=== PATIENT | female | born 1975 | race Caucasian/White ===

== ENCOUNTER 2024-04-26 08:29 | Inpatient (IN) ==
--- OUTSIDE RECORDS SUMMARY | 2024-04-26 08:50 | External Medical Summary | Summary of Care ---
Author Name Unknown Organization [facility] Address [address] [place] [address] Phone [phone] Care Team Providers Care Pump And Blower Operator Name Role Phone Demarcus Ingram MD Primary Care Provider [phone]- [phone] Reason for Visit * Reason Onset Date Comments Advice 04/20/2024 Gallbladder pain Encounter Details Date Type Department Care Team (Late st Contact Info) Description 04/20/2024 Telephone General Surgery, [place] [address] [place] [address] Mj Sinclair MD [address] [place] [address] Advice (Gallbladder pain) Allergies Active Allergy Reactions Criticality Noted Date Comments Pentosan Polysulfate Sodium 10/04/19 16 Worsened bladder symptoms Pentosan Polysulfate 01/24/2023 Omeprazole Magnesium 12/10/2010 Makes pt very ill Tioconazole Rash 10/21/2008 monistat Fesoterodine Fumarate Er 10/04/2015 Worsened bladder symptoms documented as of this encounter (statuses as of 04/20/2024) Medications Medication Sig Dispensed Refills Start Date End Date Status Cholecalciferol 125 MCG (5000 UT) Oral Capsule Take 1 Capsule by mouth daily. 90 Capsule 09/15/2021 Active Triamcinolone Acetonide 0.1 % External Cream (Aristocort)Indicati ons:Dermatitis Apply topically to affected area 2 times a day . To affected area. 80 g 5 02/21/2022 Active Additional Information Patient taking differently:Topical BID (.AM/PM),To affected area as needed, Reported on 11/27/2023 Cyclobenzaprine HCl 10 MG Oral Tablet (Flexeril)Indication s:Trigger point,Tension headache Take by mouth 1 Tablet 2 times a day as needed for Muscle spasms. 20 Tablet 02/21/2022 Active Additional Information Patient not taking.Reported on 04/09/2024 LORazepam 0.5 MG Oral Tablet (Ativan)Indications: CLEMENCIA (generalized anxiety disorder) Take by mouth 1 Tablet every 8 hours as needed for Anxiety. 30 Tablet 03/04/2022 Active Difluprednate 0.05 % Ophthalmic Emulsion (Durezol) As needed 01/01/2023 Active Dorzolamide HCl-Timolol Mal 2-0.5 % Ophthalmic Solution (Cosopt Ocumeter Plus) As needed 06/26/2023 Active Cyclopentolate HCl 1 % Ophthalmic Solution (Cyclogyl) As needed 06/11/2023 Activ e Rizatriptan Benzoate 10 MG Oral Tablet Disintegrating Take 1 Tablet by mouth as needed for Migraine. May repeat in 2 hours if needed 30 Tablet 3 08/27/2023 Active Nexplanon 68 MG Subcutaneous Implant (Etonogestrel) Inject 1 Each into the skin once. Active Escitalopram Oxalate 10 MG Oral Tablet (Lexapro)Indications :Mood disorder (HCC) TAKE 1 & 1/2 (ONE & ONE-HALF) TABLETS BY MOUTH IN THE MORNING 135 Tablet 1 02/16/2024 Active Fluocinonide 0.05 % External Solution Apply to scalp nightly for itching 20 mL 1 03/18/2024 Active documented as of this encounter (statuses as of 04/20/2024) Active Problems Problem Noted Date Diagnosed Date Mood disorder 02/20/2023 ETD (Eustachian tube dysfunction), bilateral Acanthosis nigricans 08/02/2022 Rosacea 08/02/2022 Ovarian cyst rupture 04/06/2021 Acute blood loss anemia 04/06/2021 Ventral hernia without obstruction or gangrene 0 03/26/2021 H/O dysplastic nevus 05/25/2020 Overview: Mildly atypical nevus (lower abdomen below umbilicus) Endometriosis 12/22/2018 Medical marijuana use 11/30/2018 Iron deficiency anemia 10/19/2018 History of uveitis 05/11/2018 Uveitis of both eyes 02/27/2017 OCD (obsessive compulsive disorder) 03/19/2012 Valdes's esophagus 09/04/2010 Overview: repeat EGD in 6 months documented as of this encounter (statuses as of 04/20/2024) Resolved Problems Problem Noted Date Diagnosed Date Resolved Date Prediabetes 12/04/2020 02/08/2021 Overview: Per Prediabetes protocol Urgency of urination 04/12/2015 018 Dysuria 04/12/2015 11/14/2017 Urinary frequency 04/12/2015 11/14/2017 Abdominal bloating 04/12/2015 8 ADVANCE DIRECTIVE INFORMATION 05/16/2005 11/14/2017 Overview: No, Advance Directive brochure given to patient at prior appointment. OPEN WOUND OF FINGER 01/15/2005 018 Bite of other animal except arthropod(E906.3) 01/16/20 05 11/14/2017 Edema 01/15/2005 11/14/2017 SKIN SENSATION DISTURB 01/15/200511/14 ABN PAP SMEAR-CERVIX 04/26/2003 018 Other acne 04/26/2003 11/14/2017 Major depressive disorder 04/26/2003 Overview: ICD-10 update of inactive term Interstitial cystitis 2017 documented as of this encounter (statuses as of 04/20/2024) Immunizations Name Administration Dates Next Due COVID-19 mRNA, LNP-s, No Pre serve, 2-Dose Series ([employer]) 08/16/2021,01/18/2021,12/28/2020 Rabies Vaccine Unspecified Formulation 3,08/23/2023 TDAP (age 10 and older)(Boostrix) 08/23/2023 TDAP, Age 7 and older, IM (Adacel) 03/18/2011 documented as of this encounter Social History Tobacco Use Types Packs/Day Years Used Date Smoking Tobacco: Never Passive Smoke Exposure: Never Smokeless Tobacco: Never Alcohol Use Standard Drinks/Week Comments Not Currently 0 (1 standard drink = 0.6 oz pur e alcohol) occ PHQ-2 Answer Date Recorded PHQ-2 Score 14 10/11/2019 Hunger Vital Sign Answer Date Recorded Within the past 12 months, y ou worried that your food would run out before you got the money to buy more. Never true 08/26/20 23 Within the past 12 months, t he food you bought just didn't last and you didn't have money to get more. Never true 08/26/2023 Childcare Answer Date Recorded Do you feel overwhelmed with taking care of a child, family member or friend? No 08/26/2023 Does your family need help f inding childcare? (Household - for ages 0-17 years) Not on file 08/26/2023 Clothing Answer Date Recorded Have you been unable to get clothing when it was really needed? No 08/26/2023 Is your family able to get c lothes or diapers when needed? (Household - for ages 0-17 years) Not on file 08/26/2023 Personal Safety Answer Date Recorded Do you feel unsafe or have concerns for your saf ety? No 08/26/2023 Do you have concerns for you r family's safety? (Household - for ages 0-17 years) Not on file 08/26/2023 Utilities Answer Date Recorded Do you have trouble paying y our heating, water, or electric bill? No 08/26/2023 Is your family able to pay t he heat, water, or electric bill? (Household - for ages 0-17 years) Not on file 08/26/2023 Does your family have access to good internet? (Household - for ages 0-17 years) Not on file 08/26/2023 Employment Status Answer Date Recorded Are you unemployed or without regular income? No 08/26/2023 Does the household have a re gular source of income? (Household - for ages 0-17 years) Not on file 08/26/2023 Social Connections Answer Date Recorded How often do you feel lonely or isolated from those around you? Sometimes 08/26/2023 Financial Resource Strain Answer Date R ecorded Do you have any trouble payi ng for your medications, or do you think you might in the future? No 08/26/2023 Does your family have troubl e paying for medicine? (Household - for ages 0-17 years) Not on file 08/26/2023 Transportation Needs Answer Date Record ed READ ONLY Do you have troubl e getting a ride to medical visits or work? Never True 08/26/2023 Does your family have a hard time getting a ride to doctors visits? (Household - for ages 0-17 years) Not on file 08/26/2023 Has lack of transportation k ept you from medical appointments, meetings, work, or from getting things needed for daily living? Check all that apply. (Adult - for ages 18 years and over) Not on file 08/26/2023 Do you (or your family) have trouble finding or paying for a ride (transportation)? (Household - for ages 0-17 years) Not on file 08/26/2023 Housing Stability Answer Date Recorded Do you currently live in a s helter or have no steady place to sleep at night? No 08/26/2023 READ ONLY Do you think you a re at risk of becoming homeless? No 08/26/2023 Does your family worry about paying for your home or becoming homeless? (Household - for ages 0-17 years) Not on file 1 10/26/2022 Are you homeless or worried that you might be in the future? (Adult - for ages 18 years and over) Not on file Are you (or your family) nia eless or worried that you might be in the future? (Household - for ages 0-17 years) Not on file Food Insecurity Answer Date Recorded Do you need food for this week? No 08/26/2023 Are you able to get enough f ood for your family? (Household - for ages 0-17 years) Not on file 08/26/2023 Does your family need food t his week? (Household - for ages 0-17 years) Not on file 08/26/2023 Do you always have enough fo od for your family? (Household - for ages 0-17 years) Not on file 08/26/2023 Sex and Gender Information Value Date Recorded Sex Assigned at Female 11/02/2019 8:41 AM EST Gender Identity Female 11/02/2019 8:41 AM EST Sexual Orientation Straight 10/11/2019 7: 36 AM EST Job Start Date Occupation Industry Not on file Not on file Not on file documented as of this encounter Miscellaneous Notes * Telephone Encounter - Violeta Fish LPN - 04/20/2024 12:23 PM EDT Return phone call to patient regarding complaint of increased RUQ pain related to her gallbladder, patient reported that she was seen at another Ed facility and was recommended to contact her surgeonto have surgery, was offer emergent surgery but patient had decided to wait and contact Dr. Sinclair as she would prefer to have the surgery done laparoscopic V/S open, made patient aware Dr. Yahir walker PTO at this time will message appointment schedulers to see if we could offer patient a sooner appointment, advised patient to control symptoms with diet , take Tylenol 1000 mg every 6 hours alternate with Ibuprofen every [address] she has pain medication to take every 3 hours if ineffective may take the Oxycodone prescribed by the ED facility she was evaluated last evening,, may place heating pad to painful area as well on/ off for 15-20 minutes, patient denies fevers or chills, painis 5/10 stated that while at the ED last evening they had a difficult time controlling her pain, will message insurance administrative assistant to request a sooner appointment if available. documented in this encounter Plan of Treatment Upcoming Encounters Date Type Department Care Team (Late st Contact Info) Description 05/13/2024 9:45 AM EDT Office Visit General Surgery, [address] [address] Mj Sinclair MD [address] [place] [address] 05/27/2024 2:20 PM EDT Telemedicine Gastroenterology, [address] [address] Marlin Mcnamara CRNP [address] [place] [address] 07/30/2024 3:00 PM EDT Office Visit Dermatology [address] [place] [address] David Patel MD [address] [place] [address] 08/31/2024 3:00 PM EST Imaging Radiology [facility] 1st [facility] [place] [address] [place] [address] Scheduled Procedures Name Priority Associated Diagnoses Date/Ti me COLONOSCOPY FLEXIBLE PROXIMAL DIAGNOSTIC Recall Abdominal bloating RLQ abdominal pain COLONOSCOPY FLEXIBLE PROXIMAL DIAGNOSTIC Recall Encounter for screening colonoscopy ESOPHAGOGASTRODUODENOSCOPY ( EGD), FLEXIBLE, TRANSORAL, DIAGNOSTIC Recall Valdes's esophagus Iron deficiency anemia, unspecified iron deficiency anemia type Gastroesophageal Reflux Disease, Unspecified Whether Esophagitis Present Health Maintenance Due Date Last Done Comments Depression Monitoring 10/11/2020 10/11/2019 Cologuard 12/11/2020 Fecal Occult Blood Test 12/11/2020 COVID-19 Vaccine ( season) 2023 08/16/2021, 01/18/2021, 12/28/2020 Influenza Vaccine (FLU shot) (#1) 2024 Mammogram 08/25/2024 08/25/2023, 07/31, 06/28/2022, Additional history exists Sigmoidoscopy 04/10/2025 04/10/2020, 12/07/2019 Valdes's Esophagus Surveilance 08/07/2026 08/07/2023, 08/07/2023, 12/22/2017, Additional history exists Diabetes Screening 10/24/2026 10/24/2023, 0 04/09/2022, 04/09/2022, Additional history exists Lipid Panel 04/09/2027 04/09/2022, 06/29, 08/23/2020, Additional history exists DTaP,Tdap,and Td Vaccines (8 - Td or Tdap) 08/23/2033 08/23/2023, 03/18/2011, 01/19/2001, Additional history exists Colonoscopy 04/09/2034 04/09/2024, 03/29, 12/07/2019, Additional history exists Colorectal Cancer Screening 04/09/2034 Hepatitis B Vaccine Completed 09/13/1993, 04/20/1993, 12/14/1992 HPV (Gardasil) Vaccine Aged Out No lo nger eligible based on patient's age to complete this topic MENINGOCOCCAL (MENACTRA/MENVEO) Aged Out No longer eligible based on patient's age to complete this topic Pneumococcal Vaccine: Pediatrics (0 to 5 Years) and At-Risk Patients (6 to 64 Years) Aged Out No longer eligible based on patient's age to complete this topic documented as of this encounter Medical Devices Not on filedocumented as of this encounter Care Teams Pump And Blower Operator Relationship Specialty Start Date End Date Demarcus Ingram MD [address] [place] [address] PCP - General 12/01/00 documented as of this encounter
--- OUTSIDE RECORDS SUMMARY | 2024-04-26 08:50 | External Medical Summary | Summary of Care ---
Author Name Unknown Organization [facility] Address [address] [place] [address] Phone [phone] Care Team Providers Care Crucible Packer Name Role Phone Demarcus Ingram MD Primary Care Provider [phone]- [phone] Reason for Visit * Reason Onset Date Comments Appointment 04/20/2024 Encounter Details Date Type Department Care Team (Late st Contact Info) Description 04/20/2024 Telephone General Surgery, [place] [address] [place] [address] Mj Sinclair MD [address] [place] [address] Appointment Allergies Active Allergy Reactions Criticality Noted Date [...] mRNA, LNP-s, No Pre serve, 2-Dose Series ([employer]) 08/16/2021,01/18/2021,12/28/2020 Rabies Vaccine Unspecified Formulation 3,08/23/2023 TDAP [...] encounter Miscellaneous Notes * Telephone Encounter - Ana Lewis OSA - 04/20/2024 1:45 PM EDT Called Nelda to get her scheduled with Dr Sinclair for an earlier appointment. She is scheduled 04/30 in [place]. She asked to not cancel the 05/13 appointment just in case she can't make the appointmenton 04/30. She is also on the wait list in case he has a cancellation. documented in this encounter Plan of Treatment Upcoming Encounters Date Type Department Care Team (Late st Contact Info) Description 04/30/2024 9:15 AM EDT Office Visit General Surgery, [address] [phone] Mj Sinclair MD [address] [place] [address] 05/13/2024 9:45 AM EDT Office Visit General Surgery, [place] [address] [place] [address] Mj Sinclair MD [address] [place] [address] 05/27/2024 2:20 PM EDT Telemedicine Gastroenterology, [place] [address], [place] [phone] Marlin Mcnamara CRNP [address] [place] [address] 07/30/2024 3:00 PM EDT Office Visit Dermatology [facility] [address] [facility] [place] [address] David Patel MD [address] [place] [address] 08/31/2024 3:00 PM EST Imaging Radiology [facility] 1st Floor, [address] [place] [address] Scheduled Procedures Name Priority Associated Diagnoses Date/Ti [...] filedocumented as of this encounter Care Teams Crucible Packer Relationship Specialty Start Date End Date Demarcus Ingram MD [address] [place] [address] PCP - General 12/01/00 documented as of this encounter
--- OUTSIDE RECORDS SUMMARY | 2024-04-26 08:50 | External Medical Summary | Summary of Care ---
Author Name Unknown Organization [facility] Address [address] [facility] [address] Phone [phone] Care Team Providers Care Shop Service Technician Name Role Phone Demarcus Ingram MD Primary Care Provider +1- [phone] Encounter Details Date Type Department Care Team (Late st Contact Info) Description 04/23/2024 9:00 AM EDT Telemedicine [facility] [address] [place] [address] Kaylee Prince PA-C [address] [place] [address] Major depressive disorder, recurrent, moderate (HCC)* Allergies Active Allergy Reactions Criticality Noted Date Comments Pentosan Polysulfate Sodium 10/04/19 16 Worsened bladder symptoms Pentosan Polysulfate 01/24/2023 Omeprazole Magnesium 12/10/2010 Makes pt very ill Tioconazole Rash 10/21/2008 monistat Fesoterodine Fumarate Er 10/04/2015 Worsened bladder symptoms documented as of this encounter (statuses as of 04/23/2024) Medications Medication Sig Dispensed Refills Start Date [...] for itching 20 mL 1 03/18/2024 Active Ondansetron 8 MG Oral Tablet Disintegrating (Zofran) Place 1 Tablet on tongue every 8 hours as needed for Nausea. dissolve on tongue. 20 Tablet 1 04/23/2024 Active oxyCODONE HCl 5 MG Oral Tablet (Oxy IR) Take 1 Tablet by mouth every 6 hours as needed for Pain, Severe. 12 Tablet 04/23/2024 Active documented as of this encounter (statuses as of 04/23/2024) Active Problems Problem Noted Date Diagnosed Date Major depressive disorder, recurrent, moderate 0 04/23/2024 Mood disorder 02/20/2023 ETD (Eustachian tube dysfunction), [...] as of this encounter (statuses as of 04/23/2024) Resolved Problems Problem Noted Date Diagnosed Date [...] as of this encounter (statuses as of 04/23/2024) Immunizations Name Administration Dates Next Due COVID-19 mRNA, LNP-s, No Pre serve, 2-Dose Series ([employer]) 08/16/2021,01/18/2021,12/28/2020 Rabies Vaccine Unspecified Formulation 3,08/23/2023 TDAP [...] on file documented as of this encounter Progress Notes * Kaylee Prince PA-C - 04/23/2024 8:50 AM EDT Images from the original note were not included. History of Present Illness Nelda Alcala is a 48 year old female that presents for No chief complaint on file. Due to COVID 19 pandemic, this visit was done via video. Patient is established with the practice. Last face to face visit was 04/06/2024. Call start time: 850 Patient location: HOME. I was in a hospital or clinic location. After connecting through televideo,patient was verified with two unique identifiers. Patient (or authorized legal customer response representative) was then informed that this was a Telemedicine visit and being conducted confidentially over secure lines. Methods to assure confidentiality were taken. Patient acknowledged consent and understanding of pr ivacy and security of the Telemedicine visit. The patient agreed to participate. Has known cholelisthiasis She has had another attack Her firs er atack, the episode was over and she had good pain control She ate carefully Last Friday she had an episode at 7 or 8 am Ramped up fast Pain across front to back,s pasm across herribs Stabbing pain Could not get a deep breathe Her pain was a 12/10 They gave her zofran and fentanyl again This time it did not get the pain under control Was a5-6/10 Spasm stopped but sharp knifing pain did not stop They sent her home owth oxycodone and zofran They wanted her to try to get it under control at home and reach out to her surgeons They gave her nausea medications that helped but only gave her 4 pills - she wants a refill if she can The oxy makes her constipated and nauseas as well as constipated She has not had a bm since Friday She cannot keep much down On Friday she threw up all the meds She tried chicken soup and threw it all up She feels terrible The worst is just the pain The pain is an 8/10 She was given a few tabs of oxy She is spacing it out to try to make it last She is doing IB and tylenol every 6 hours off set She has a lot of gas - wants to know if she can take gas-x She took a colace last night We do not have this er note Her us at the er showed a 1.4 cm stone It had moved from the fundus down to the neck It did not appear to be stuck They felt like it was aggravating the neck Yesterday she called both surgeons offices Told them she cannot do this - it is too much pain Dr Sim is local. She had her consult. He told her that because of her scar tissue and mesh thatshe would have to be an open procedure She talked to him yesterday They can see her May 06 and maybe the surgery the following week. She reached out to the doctor at [facility]. Dr Sinclair. She can see him for a consult on April 30. No idea when she would get a surgery date. Physical Exam There were no vitals filed for this visit. BP Readings from Last 3 Encounters: 04/09/24 115/82 04/06/24 126/82 11/27/23 132/80 Wt Readings from Last 3 Encounters: 04/09/24 110.4 kg (243 lb 4.8 oz) 04/06/24 112.5 kg (248 lb) 11/27/23 113.4 kg (250 lb) BMI Readings from Last 3 Encounters: 04/09/24 35.93 kg/m 04/06/24 36.62 kg/m 11/27/23 36.92 kg/m Ht Readings from Last 3 Encounters: 04/06/24 1.753 m (5' 9") 11/27/23 1.753 m (5' 9") 10/24/23 1.753 m (5' 9") Assessment and Plan Major depressive disorder, recurrent, moderate (HCC) - stable Other orders - Ondansetron 8 MG Oral Tablet Disintegrating (Zofran); Place 1 Tablet on tongue every 8 hours as needed for Nausea. dissolve on tongue. - oxyCODONE HCl 5 MG Oral Tablet (Oxy IR); Take 1 Tablet by mouth every 6 hours as needed for Pain,Severe. I have reviewed the patients controlled substance dispensing history in the Prescription Drug Monitoring Program in compliance with the [facility] regulations before prescribing a controlled substance. Last Tox Screen Results: No results found. However, due to the size of the patient record, not all encounters were searched.Please check Results Review for a complete set of results. Rev her options Do think er is an option for emergency surgery if she cannot control things She is not to eat solids -she has to do a liquid diet. Gas x is fine Wrap-Up Refill meds Need er note Time: I spent a total of 20-29 minutes (exact time 22 mins) on the date of service in preparation, delivery, and documentation of the care provided to Nelda Alcala excluding any time spent in the performance of separately billed services. Kaylee Prince PA-C 04/23/2024 9:10 AM documented in this encounter Plan of Treatment Upcoming Encounters Date Type Department Care Team (Late st Contact Info) Description 04/26/2024 9:40 AM EDT Office Visit [facility] [address] [place] [address] Demarcus Ingram MD [address] [place] [address] 04/30/2024 9:15 AM EDT Office Visit General Surgery[address] [phone] Mj Sinclair MD [address] [place] [address] 05/13/2024 9:45 AM EDT Office Visit [facility] [address] [place] [address] Mj Sinclair MD [address] [place], [place] [phone] 05/27/2024 2:20 PM EDT Telemedicine Gastroenterology, [place] [address] [place] [address] Marlin Mcnamara, [facility] [address] [place] [address] 07/30/2024 3:00 PM EDT Office Visit Dermatology [facility] [address] [place] [address] David Patel MD [address] [place] [address] 08/31/2024 3:00 PM EST Imaging Radiology [address] [place], [place] [id number] Scheduled Procedures Name Priority Associated Diagnoses Date/Ti [...] Not on filedocumented as of this encounter Visit Diagnoses Diagnosis Major depressive disorder, recurrent, moderate (HCC)- Primary Major depressive disorder, recurrent episode, moderate documented in this encounter Care Teams Shop Service Technician Relationship Specialty Start Date End Date Demarcus Ingram MD [address] [place] [address] PCP - General 12/01/00 documented as of this encounter
--- NOTE | 2024-04-26 09:02 | Emergency Department Note ---
Impression & Plan Acute cholecystitis ADMIT ED Provider Note HPI: History obtained from patient. The patient is a 48-year-old female who presents emergency department with chief complaint of abdominal pain. Patient states she has been evaluated multiple times this month in the emergency department for abdominal pain, she was diagnosed with cholelithiasis and was currently in the midst of an outpatient workup to schedule an elective cholecystectomy. Patient states that last night at around 2 AM she again developed a severe episode of right-sided abdominal pain and therefore came to the emergency department this morning to be assessed. Patient states that she does have a history of hernia repair with mesh. On arrival here to the ED the patient is hemodynamically stable, she is mildly tachycardic but otherwise with stable blood pressure and saturating well on room air, patient is afebrile on arrival. ROS: - Per HPI Differential Diagnosis: Acute cholecystitis, choledocholithiasis, acute appendicitis, small bowel obstruction, viral gastroenteritis, amongst other potential pathologies. *Outpatient medications and allergy history reviewed. PE: General: Alert, obese, no acute distress HEENT: Normocephalic, trachea midline Eyes: Extraocular eye movement is intact, no scleral erythema Pulmonary: Clear to auscultation bilaterally, no wheezing Cardio: Regular rate and rhythm GI: There is tenderness in the right upper quadrant to palpation without guarding or rigidity, otherwise abdomen is soft to palpation : No suprapubic tenderness MSK: No evidence of trauma or malformation of the extremities, no edema Skin: No evidence of rash Neuro: Alert, no focal deficits Psychiatric: Cooperative INDEPENDENT INTERPRETATIONS: security monitor: (As interpreted by myself): - An order was placed for continuous cardiac monitoring - Patient was noted to be in sinus rhythm with a rate of 90 Interventions provided in ED: -IV fluid bolus, IV morphine, IV Zofran, IV fentanyl Medical Decision Making: IV was established and lab work obtained, patient was placed on residential monitor. Lab work shows no leukocytosis, hemoglobin is normal, platelet count is slightly elevated at 424, CMP does not show any critical findings, there is no transaminitis. Bilirubin is normal. Lipase is normal. Urinalysis shows 2+ ketones. Patient was given IV fluids here in the ED, ultrasound imaging of the gallbladder was obtained that is concerning for acute cholecystitis with an impacted stone in the neck of the gallbladder. I discussed these findings with the general surgery midlevel provider, Jazmin Cardoza PA-C, and the patient was evaluated at the bedside by the general surgery service including Dr. Sim. Following their evaluation the patient was determined appropriate for operative intervention. Patient was in agreement to this plan. She was placed for admission to the general surgery service with plan for definitive care via cholecystectomy. Consultants/Discussions held with other healthcare providers: -General surgery, Dr. Sim Disposition discussion held by myself with: -Patient and patient's mother at the bedside Diagnosis: 1. Acute cholecystitis 2. Ketonuria, acute 3. Right-sided abdominal pain, acute Disposition: Admission Nato Tavarez DO Emergency Medicine Past Med/Surg History Problem List (Updated 04/26/24 @ 12:55 by Nato Tavarez DO) Acute cholecystitis (Acute) Encounter for pre-operative examination Acute cholecystitis Abdominal pain (Acute) Back problem Cholelithiasis (Acute) Nexplanon in place 06/2023 Depression with anxiety Chronic pelvic pain in female Diarrhea Constipation Medical History (Updated 04/26/24 @ 12:55 by Nato Tavarez DO) Endometriosis Robert's thyroiditis Stomach ulcer Anemia H/O sigmoidoscopy to open her bowel after scarring. Migraine Surgical History H/O hernia repair at site of ileostomy H/O: hysterectomy for eosis H/O ileostomy with reversal Hx of appendectomy at time of hyster S/P colon resection 2 sections removed during her hx for eosis History of wisdom tooth extraction H/O colonoscopy Family History Father Hypertension Heart disease Mother Breast cancer, Onset Age: 72 Robert's thyroiditis Grandfather (Maternal) Prostate cancer Cancer Colorectal cancer Grandmother (Paternal) Lung cancer Cancer Uncle Lymphoma maternal Denies family history of Ovarian cancer Social History Smoking Status: Never smoker Hx Alcohol Use: Yes Alcohol Intake Frequency: Monthly or Less Preferred Language: Icelandic marital status: Feels Safe at Home: Yes Diet: regular during the past year weight has: remained stable Allergies Allergies Allergy/AdvReac Type Severity Reaction Status Date / Time fesoterodine [From Toviaz] Allergy Mild BLADDER Unverified 04/26/24 11:05 PAIN omeprazole Allergy Mild Gastrointestinal Unverified 04/26/24 11:05 Upset tioconazole Allergy Mild PAIN Unverified 04/26/24 11:05 [From Monistat 1 (tioconazole)] Monistat Soothing Care GEL AdvReac Unknown Pain Uncoded 04/26/24 11:05 Home Meds Home Medications Medication Instructions Recorded Confirmed etonogestrel 68 mg subdermal 1 implant subdermal ONCE 01/02/23 04/26/24 implant (Nexplanon) Endometriosis escitalopram oxalate 10 mg tablet 15 mg PO QAM 04/04/24 04/26/24 rizatriptan 10 mg disintegrating 10 mg PO ONCE PRN Migraine Headache 04/04/24 04/26/24 tablet lorazepam 0.5 mg tablet 0.5 mg PO DAILY PRN Anxiety 04/26/24 04/26/24 ondansetron 8 mg disintegrating 8 mg PO Q8H PRN Nausea And Vomiting 04/26/24 04/26/24 tablet Previous Rx's Medication Instructions Recorded oxycodone 5 mg tablet 5 mg PO Q8H PRN pain #10 tabs 04/20/24 Results & Data (ED) Vital Signs Vital Signs - 24 hr 04/26/24 08:36 04/26/24 09:02 04/26/24 11:14 Temperature 36.2 C L Temperature Source Temporal Artery Scan Pulse Rate 116 H 98 H Pulse Rate [Left Finger] 97 H Pulse Rate from SpO2 Sensor Pulse Rhythm [Left Finger] Regular Pulse Strength [Left Finger] Normal Respiratory Rate 20 18 Respiratory Effort / Characteristics Non-Labored Non-Labored Spontaneous Respiratory Depth Normal Normal Respiratory Pattern Regular Blood Pressure 136/72 Blood Pressure [Right Arm] 144/87 H Blood Pressure Mean 93 Blood Pressure Mean [Right Arm] 106 Blood Pressure Position [Right Arm] Sitting Pulse Oximetry 98 97 Oxygen Delivery Method Room Air Room Air Sepsis New/Unexplained Change in Mental Status No Sepsis Action Taken by Nursing No Action Required 04/26/24 11:15 04/26/24 11:30 04/26/24 12:00 Temperature Temperature Source Pulse Rate 105 H 90 92 H Pulse Rate [Left Finger] Pulse Rate from SpO2 Sensor 100 H 92 H 92 H Pulse Rhythm [Left Finger] Pulse Strength [Left Finger] Respiratory Rate 16 19 17 Respiratory Effort / Characteristics Respiratory Depth Respiratory Pattern Blood Pressure 144/87 H 131/77 152/93 H Blood Pressure [Right Arm] Blood Pressure Mean 106 95 112 Blood Pressure Mean [Right Arm] Blood Pressure Position [Right Arm] Pulse Oximetry 95 97 96 Oxygen Delivery Method Sepsis New/Unexplained Change in Mental Status Sepsis Action Taken by Nursing 04/26/24 12:43 Temperature 36.7 C Temperature Source Oral Pulse Rate Pulse Rate [Left Finger] 94 H Pulse Rate from SpO2 Sensor Pulse Rhythm [Left Finger] Regular Pulse Strength [Left Finger] Normal Respiratory Rate 20 Respiratory Effort / Characteristics Non-Labored Spontaneous Respiratory Depth Normal Respiratory Pattern Regular Blood Pressure Blood Pressure [Right Arm] 161/93 H Blood Pressure Mean Blood Pressure Mean [Right Arm] 115 Blood Pressure Position [Right Arm] Sitting Pulse Oximetry 98 Oxygen Delivery Method Room Air Sepsis New/Unexplained Change in Mental Status Sepsis Action Taken by Nursing Laboratory Data 04/26/24 09:00 04/26/24 09:00 Lab Results 04/26/24 04/26/24 Range/Units 09:00 09:10 WBC 8.17 (4.8-10.8) K/ul RBC 4.60 (4.20-5.40) M/uL Hgb 13.0 (12.0-16.0) g/dl Hct 38.2 (37.0-47.0) % MCV 83.0 (80.0-100.0) fL MCH 28.3 (25.0-34.0) pg MCHC 34.0 (32.0-36.0) g/dL RDW Std Deviation 38.4 (36.4-46.3) fL RDW Coeff of Robert 12.7 (11.5-14.5) % Plt Count 424 H (130-400) K/uL MPV 8.8 L (9.4-12.4) fL Immature Gran % (Auto) 0.6 % Neut % (Auto) 69.4 % Lymph % (Auto) 18.8 % Dare % (Auto) 9.1 % Eos % (Auto) 1.7 % Baso % (Auto) 0.4 % Neut # (Auto) 5.67 (1.40-6.50) K/uL Lymph # (Auto) 1.54 (1.20-3.40) K/uL Dare # (Auto) 0.74 H (0.11-0.59) K/uL Eos # (Auto) 0.14 (0.00-0.50) K/uL Baso # (Auto) 0.03 (0.00-0.20) K/uL Immature Gran # (Auto) 0.05 (0.01-0.20) K/uL PT 11.4 (9.0-12.0) Seconds INR 1.1 (0.9-1.1) Sodium 135 L (136-145) mmol/L Potassium 3.4 L (3.5-5.1) mmol/L Chloride 99 (98-107) mmol/L Carbon Dioxide 25 (21-32) mmol/L Anion Gap 11 (3-11) BUN 4 L (6-23) mg/dl Creatinine 0.61 (0.6-1.2) mg/dl Est Cr Clr Drug Dosing 146.4 ml/min Est GFR ( Amer) 124.2 ml/min Est GFR (Non-Af Amer) 107.2 ml/min BUN/Creatinine Ratio 6.6 L (10-20) Glucose 92 (70-99(Fasting)) mg/dl Calcium 9.3 (8.6-10.3) mg/dl Total Bilirubin 0.4 (0.2-1.0) mg/dl AST 21 (13-39) U/L ALT 50 (7-52) U/L Alkaline Phosphatase 103 (34-104) U/L Total Protein 7.8 (6.0-8.3) gm/dl Albumin 4.1 (3.4-5.0) gm/dl Globulin 3.7 (2.5-4.0) gm/dl Albumin/Globulin Ratio 1.1 (0.9-2) Lipase 17 (11-82) U/L Urine Color Yellow Urine Appearance Clear (Clear) Urine pH 6.5 (4.5-7.5) Ur Specific [place] 1.006 (1.000-1.030) Urine Protein Negative (Negative) Urine Glucose (UA) Negative (Negative) Urine Ketones 2+ H (Negative) Urine Blood Negative (Negative) Urine Nitrite Negative (Negative) Urine Bilirubin Negative (Negative) Urine Urobilinogen Negative (Negative) Ur Leukocyte Esterase Negative (Negative) Administered Medications Discontinued Medications Fentanyl Citrate (Fentanyl Citrate Pf 100 Mcg/2 Ml Vial) 50 mcg IV NOW STA Stop: 04/26/24 10:15 Last Admin: 04/26/24 10:18 Dose: 50 mcg Documented By: JOSE Sodium Chloride (Nss) 500 mls @ 999 mls/hr IV .Q31M STA Stop: 04/26/24 09:30 Last Infusion: 04/26/24 10:03 Dose: Infused Documented By: Admin: 04/26/24 09:12 Dose: 999 mls/hr Documented By: JOSE Morphine Sulfate (Morphine Sulfate 4 Mg/Ml 1 Ml Carp\Vial) 4 mg IV NOW STA Stop: 04/26/24 09:01 Last Admin: 04/26/24 09:12 Dose: 4 mg Documented By: JOSE Morphine Sulfate (Morphine Sulfate 4 Mg/Ml 1 Ml Carp\Vial) 4 mg IV NOW STA Stop: 04/26/24 10:07 Last Admin: 04/26/24 10:18 Dose: Not Given Documented By: JOSE Ondansetron HCl (Ondansetron Inj 2 Mg/Ml 2 Ml Vial) 4 mg IV NOW STA Stop: 04/26/24 09:01 Last Admin: 04/26/24 09:12 Dose: 4 mg Documented By: JOSE Imaging Data Radiologist's Impression: Gallbladder Ultrasound 04/26/24 09:00 ABDOMINAL ULTRASOUND, RIGHT UPPER QUADRANT HISTORY: RUQ pain. COMPARISON: Abdominal ultrasound 04/20/2024. FINDINGS: Pancreas: The visualized pancreas demonstrates a normal echotexture. Liver: The liver is echogenic consistent with fatty change. 16 cm in length. The main portal vein is patent. Gallbladder: Mild gallbladder wall thickening with trace pericholecystic fluid. There are 2 stones within the gallbladder. The stone within the gallbladder neck measures 1.5 cm and appears impacted. A sonographic Brewster's sign was unable to be assessed due to the patient's pain medication. The gallbladder is mildly distended. CBD: 6 mm. Right kidney: No hydronephrosis. IMPRESSION: 1. There is a 1.5 cm stone within the neck of the gallbladder which appears impacted. There is also mild gallbladder wall thickening with trace pericholecystic fluid. Therefore, these findings are suspicious for an acute cholecystitis. Surgical consultation recommended. 2. Normal caliber common bile duct. 3. Hepatic steatosis. ACT 112: Negative or not required by law. Electronically signed by: Clayton Banks M.D. 04/26/2024 10:26 AM Discharge Plan Visit Data Chief Complaint: Abdominal Pain Stated Complaint: GALLBLADDER ATTACK ED Provider: Nato Tavarez Discharge Problem: Acute cholecystitis Patient Disposition: Admitted As Inpatient Discharge Instructions Interventions: ED Discharge Assessment Last Done: 04/26/24 12:25
[2024-04-26] MEDS: ONDANSETRON INJ 2 MG/ML 2 ML VIAL IV STA (09:12)
[2024-04-26] MEDS: MoRPHine SULFATE 4 MG/ML 1 ML CARP\\VIAL IV STA ×2 (09:12→10:18)
[2024-04-26] MEDS: SODIUM CHLORIDE 0.9% 500 ML IV STA (09:12)
[2024-04-26 09:35] LABS: Appearance Urine Clear (Clear); Bilirubin Urine Negative (Negative); Blood Urine Negative (Negative); Color Urine Yellow; Glucose Urine UA Negative (Negative); Ketones Urine 2+ (Negative); Leukocyte Esterase Urine Negative (Negative); Nitrite Urine Negative (Negative); Protein Urine Negative (Negative); Specific Gravity Urine 1.006 (1.000-1.030); Urobilinogen Urine Negative (Negative); pH Urine 6.5 (4.5-7.5)
[2024-04-26 09:36] LABS: Basophils # (auto) 0.03 K/uL (0.00-0.20); Basophils % (auto) 0.4 %; Eosinophils # (auto) 0.14 K/uL (0.00-0.50); Eosinophils % (auto) 1.7 %; Hematocrit (blood only) 38.2 % (37.0-47.0); Immature Granulocytes # (auto) 0.05 K/uL (0.01-0.20); Immature Granulocytes % (auto) 0.6 %; Lymphocytes # (auto) 1.54 K/uL (1.20-3.40); Lymphocytes % (auto) 18.8 %; Mean Corpuscular Hemoglobin 28.3 pg (25.0-34.0); Mean Platelet Volume 8.8 fL (9.4-12.4); Monocytes # (auto) 0.74 K/uL (0.11-0.59); Monocytes % (auto) 9.1 %; Neutrophils # (auto) 5.67 K/uL (1.40-6.50); Neutrophils % (auto) 69.4 %; Platelet Count 424 K/uL (130-400); RDW Coefficient of Variation 12.7 % (11.5-14.5); RDW Standard Deviation 38.4 fL (36.4-46.3); White Blood Count 8.17 K/ul (4.8-10.8)
[2024-04-26 09:46] LABS: Albumin Globulin Ratio 1.1 (0.9-2); Albumin Level 4.1 gm/dl (3.4-5.0); BUN Creatinine Ratio 6.6 (10-20); Bilirubin,Total 0.4 mg/dl (0.2-1.0); Calcium 9.3 mg/dl (8.6-10.3); Creatinine Clr Calc Pharmacy 146.4 ml/min; Est GFR (African American) 124.2 ml/min; Est GFR (Non-African American) 107.2 ml/min; Globulin 3.7 gm/dl (2.5-4.0); Potassium 3.4 mmol/L (3.5-5.1); Total Protein 7.8 gm/dl (6.0-8.3)
[2024-04-26 09:56] LABS: INR 1.1 (0.9-1.1); Prothrombin Time 11.4 Seconds (9.0-12.0)
[2024-04-26] MEDS: fentaNYL citrate PF 100 MCG/2 ML VIAL IV STA (10:18)
--- NOTE | 2024-04-26 10:28 | Ultrasound Report ---
ABDOMINAL ULTRASOUND, RIGHT UPPER QUADRANT HISTORY: RUQ pain. COMPARISON: Abdominal ultrasound 04/20/2024. FINDINGS: Pancreas: The visualized pancreas demonstrates a normal echotexture. Liver: The liver is echogenic consistent with fatty change. 16 cm in length. The main portal vein is patent. Gallbladder: Mild gallbladder wall thickening with trace pericholecystic fluid. There are 2 stones wi thin the gallbladder. The stone within the gallbladder neck measures 1.5 cm and appears impacted. A s onographic Brewster's sign was unable to be assessed due to the patient's pain medication. The gallblad krishna is mildly distended. CBD: 6 mm. Right kidney: No hydronephrosis. IMPRESSION: 1. There is a 1.5 cm stone within the neck of the gallbladder which appears impacted. There is also m ild gallbladder wall thickening with trace pericholecystic fluid. Therefore, these findings are suspi cious for an acute cholecystitis. Surgical consultation recommended. 2. Normal caliber common bile duct. 3. Hepatic steatosis. ACT 112: Negative or not required by law. Electronically signed by: Clayton Banks M.D. 04/26/2024 10:26 AM
--- NOTE | 2024-04-26 10:57 | History & Physical Report ---
Date of Service April 26, 2024 Assessment & Plan (1) Acute cholecystitis: Plan: US images and results were personally viewed and interpreted by myself She likely has acute cholecystitis based on her US and physical exam findings Will admit her, keep NPO, give IV ABX Plan on laparoscopic cholecystectomy, possible open, possible IOC Consent was obtained, risks discussed including bleeding, infection, bile leak, ductal injury, injury to surrounding structures History of Present Illness Chief Complaint: Acute cholecystitis Primary Care Provider: Demarcus Ingram MD This is a 48 yo female who presented to the ER today with sharp RUQ abdominal pain with radiation to the back since 2AM. She states that for the past week or so she has had similar symptoms but they worsened at 2AM. No aggravating or relieving factors. She has had nausea and emesis with this. Denies any tea- colored urine, acholic stools, scleral icterus. She does have a fairly extensive surgical history that involves a robotic LAR and ileocecectomy and hysterectomy for endometriosis. She had diverting ileostomy that has since been reversed. She then had an incisional hernia repair with mesh. This was all done at [facility]. Allergies Allergy/AdvReac Type Severity Reaction Status Date / Time fesoterodine [From Toviaz] Allergy Mild BLADDER Unverified 04/07/24 10:39 PAIN omeprazole Allergy Mild Gastrointestinal Unverified 04/07/24 10:39 Upset tioconazole Allergy Mild PAIN Unverified 04/07/24 10:39 [From Monistat 1 (tioconazole)] Monistat Soothing Care GEL AdvReac Unknown Uncoded 04/07/24 10:39 Home Medications Medication Instructions Recorded Confirmed Type etonogestrel 68 mg subdermal 1 implant subdermal ONCE 01/02/23 04/07/24 History implant (Nexplanon) escitalopram oxalate 10 mg tablet 15 mg PO QAM 04/04/24 04/07/24 History rizatriptan 10 mg disintegrating 10 mg PO ONCE PRN Migraine Headache 04/04/24 04/07/24 History tablet oxycodone 5 mg tablet 5 mg PO Q8H PRN pain #10 tabs 04/20/24 Rx Past Med/Surg History Problem List (Updated 04/26/24 @ 11:01 by Morteza Sim DO) Acute cholecystitis Abdominal pain (Acute) Back problem Cholelithiasis (Acute) Nexplanon in place 06/2023 Depression with anxiety Chronic pelvic pain in female Endometriosis Robert's thyroiditis Diarrhea Constipation Medical History Stomach ulcer Anemia H/O sigmoidoscopy to open her bowel after scarring. Migraine Surgical History H/O hernia repair at site of ileostomy H/O: hysterectomy for eosis H/O ileostomy with reversal Hx of appendectomy at time of hyster S/P colon resection 2 sections removed during her hx for eosis History of wisdom tooth extraction H/O colonoscopy Family History Father Hypertension Heart disease Mother Breast cancer, Onset Age: 72 Robert's thyroiditis Grandfather (Maternal) Prostate cancer Cancer Colorectal cancer Grandmother (Paternal) Lung cancer Cancer Uncle Lymphoma maternal Denies family history of Ovarian cancer Social History Smoking Status: Never smoker Hx Alcohol Use: Yes Alcohol Intake Frequency: Monthly or Less Preferred Language: Maori marital status: Feels Safe at Home: Yes Diet: regular during the past year weight has: remained stable Review of Systems Constitutional: no fever and no chills Eyes: no blind spots and no worsening vision Ear, Nose, Mouth, Throat: no ear pain, no tinnitus and no hearing loss Respiratory: no cough and no dyspnea Cardiovascular: no chest pain and no dyspnea on exertion Gastrointestinal: + abdominal pain, + nausea and + vomitin g; no constipation and no diarrhea/loose stools Genitourinary: no dysuria, no urinary urgency and no nocturia Musculoskeletal: no back pain and no neck pain Integumentary: no acne, no erythema and no urticaria Neurologic: no gait abnormality and no headache(s) Psychiatric: no behavioral changes and no depression Hematologic / Lymphatic: no easy bleeding and no easy bruising Physical Exam Constitutional: WD/WN, vitals as above Eyes: PERRL, conjunctivae normal, anicteric sclerae ENMT: external ear and nose normal, oropharynx normal Neck: trachea midline, no thyromegaly Respiratory: normal respiratory effort, lungs clear to auscultation Cardiovascular: RRR, no murmur, no edema Gastrointestinal (Abdomen): Inspection/Auscultation: abdomen normal to inspection; abdomen not distended Percussion/Palpation: + abdomen tender (RUQ), + guarding and abdomen soft; no hernia Multiple surgical scars, RLQ, lower midline Musculoskeletal: no cyanosis or clubbing, extremities motor strength 5/5 Skin: no rashes, warm and dry Neurologic: PERRL, EOMI, accommodation nl, no face palsy, no dysarthria Psychiatric: A+Ox3, euthymic affect Results & Data Results & Data Vital Signs (Past 12 Hours) Vital Signs Temp Pulse Resp BP Pulse Ox O2 Del Method 04/26/24 09:02 98 H 04/26/24 08:36 36.2 C L 116 H 20 136/72 98 Room Air PG Care Time/CCT Total # of Minutes Spent Total Time Spent with Patient: Total time spent is greater than 50% in coordination of care (as documented) at patient's floor/unit and/or counseling patient: Coding Level of Care Code 60008 INT INP/OBS CARE 3/75MIN Diagnoses Acute cholecystitis K81.0
[2024-04-26] MEDS ORDERED: ONDANSETRON INJ 2 MG/ML 2 ML VIAL IV PRN ×3 (11:22→18:24)
[2024-04-26] MEDS ORDERED: KETOROLAC 30 MG/ML VIAL IV PRN ×2 (11:22→13:32)
[2024-04-26] MEDS ORDERED: PROMETHAZINE HCL 6.25 MG in SODIUM CHLORIDE 0.9% 50 ML IV PRN ×2 (11:22→13:32)
[2024-04-26] MEDS ORDERED: ATROPINE SULFATE 0.1 MG/ML 10ML SYR IV PRN ×2 (11:22→13:32)
--- NOTE | 2024-04-26 11:22 | Anesthesiology Consultation ---
Date of Service April 26, 2024 Assessment & Plan (1) Encounter for pre-operative examination: Chart Review Chart Review: Acceptable Risk for Surgery History Surgery Operation Date: 04/26/24 10:20 Proposed Procedures p Laparoscopic Cholecystectomy - Morteza Sim, Height/Weight Height: 5 ft 9 in Weight: 106.3 kg Allergies Allergy/AdvReac Type Severity Reaction Status Date / Time fesoterodine [From Toviaz] Allergy Mild BLADDER Unverified 04/26/24 11:05 PAIN omeprazole Allergy Mild Gastrointestinal Unverified 04/26/24 11:05 Upset tioconazole Allergy Mild PAIN Unverified 04/26/24 11:05 [From Monistat 1 (tioconazole)] Monistat Soothing Care GEL AdvReac Unknown Pain Uncoded 04/26/24 11:05 Medications Home Medications Medication Instructions Recorded Confirmed Last Taken etonogestrel 68 mg subdermal 1 implant subdermal ONCE 01/02/23 04/26/24 Unknown implant (Nexplanon) Endometriosis escitalopram oxalate 10 mg tablet 15 mg PO QAM 04/04/24 04/26/24 04/26/24 rizatriptan 10 mg disintegrating 10 mg PO ONCE PRN Migraine Headache 04/04/24 04/26/24 Unknown tablet oxycodone 5 mg tablet 5 mg PO Q8H PRN pain #10 tabs 04/20/24 04/26/24 04/25/24 lorazepam 0.5 mg tablet 0.5 mg PO DAILY PRN Anxiety 04/26/24 04/26/24 Unknown ondansetron 8 mg disintegrating 8 mg PO Q8H PRN Nausea And Vomiting 04/26/24 04/26/24 Unknown tablet Past Medical History Medical History (Updated 04/26/24 @ 11:22 by Dm Rodriguez MD) Endometriosis Robert's thyroiditis Stomach ulcer Anemia H/O sigmoidoscopy to open her bowel after scarring. Migraine Past Family History Family History Father Hypertension Heart disease Mother Breast cancer, Onset Age: 72 Robert's thyroiditis Grandfather (Maternal) Prostate cancer Cancer Colorectal cancer Grandmother (Paternal) Lung cancer Cancer Uncle Lymphoma maternal Denies family history of Ovarian cancer Past Surgical History Surgical History H/O hernia repair at site of ileostomy H/O: hysterectomy for eosis H/O ileostomy with reversal Hx of appendectomy at time of hyster S/P colon resection 2 sections removed during her hx for eosis History of wisdom tooth extraction H/O colonoscopy Social History Smoking Status: Never smoker Hx Alcohol Use: Yes Physical Exam Vital Signs Last Vital Signs Temp 36.2 C L 04/26/24 08:36 Pulse 97 H 04/26/24 11:14 Resp 18 04/26/24 11:14 BP 144/87 H 04/26/24 11:14 Pulse Ox 97 04/26/24 11:14 O2 Del Method Room Air 04/26/24 11:14 Testing Laboratory Results 04/26/24 09:00 04/26/24 09:00 PT 11.4 Seconds (9.0-12.0) 04/26/24 09:00 INR 1.1 (0.9-1.1) 04/26/24 09:00 Urine Color Yellow 04/26/24 09:10 Urine Appearance Clear (Clear) 04/26/24 09:10 Urine pH 6.5 (4.5-7.5) 04/26/24 09:10 Ur Specific [place] 1.006 (1.000-1.030) 04/26/24 09:10 Urine Protein Negative (Negative) 04/26/24 09:10 Urine Glucose (UA) Negative (Negative) 04/26/24 09:10 Urine Ketones 2+ (Negative) H 04/26/24 09:10 Urine Nitrite Negative (Negative) 04/26/24 09:10 Ur Leukocyte Esterase Negative (Negative) 04/26/24 09:10
[2024-04-26] MEDS: LACTATED RINGER'S 1,000 ML IV SCH ×2 (12:52→20:33)
[2024-04-26] MEDS ORDERED: fentaNYL citrate PF 100 MCG/2 ML VIAL IV PRN (13:32)
[2024-04-26] MEDS ORDERED: DROPERIDOL 5 MG/2 ML VIAL ONE (13:33)
[2024-04-26] MEDS ORDERED: ONDANSETRON INJ 2 MG/ML 2 ML VIAL ONE (13:38)
[2024-04-26] MEDS ORDERED: DEXAMETHASONE SOD INJ 4 MG/ML VIAL ONE (13:38)
[2024-04-26] MEDS ORDERED: LIDOCAINE 2% 2 ML VIAL/AMP(20MG/ML) INFIL ONE (13:38)
[2024-04-26] MEDS ORDERED: ROCURONIUM BROMIDE 10 MG/ML 5 ML VIAL IV ONE ×2 (13:38→14:55)
[2024-04-26] MEDS ORDERED: PROPOFOL IV EMULSION 10 MG/ML 20 ML VIAL IV ONE ×2 (13:38→15:21)
[2024-04-26] MEDS ORDERED: MIDAZOLAM HCL 1 MG/ML 2ML VIAL ONE (13:39)
[2024-04-26] MEDS ORDERED: fentaNYL citrate PF 100 MCG/2 ML VIAL ONE ×2 (13:39→14:46)
[2024-04-26] MEDS ORDERED: diphenhydrAMINE 50 MG/ML VIAL ONE (13:43)
[2024-04-26] MEDS: cefOXitin 2,000 MG in DEXTROSE 5 % MINI-B 50 ML IV SCH (14:22)
[2024-04-26] MEDS ORDERED: ePHEDrine sulfate 50 MG/5 ML SYR ONE (14:41)
[2024-04-26] MEDS ORDERED: PHENYLEPHRINE 100MCG/ML 10ML SYR IV ONE (14:41)
[2024-04-26] MEDS ORDERED: KETOROLAC 30 MG/ML VIAL ONE (14:48)
[2024-04-26] MEDS ORDERED: SUGAMMADEX SODIUM 200 MG/2 ML VIAL IV ONE (15:07)
[2024-04-26] MEDS: FLOSEAL HEMOSTATIC MATRIX 10ML TOP ONE (15:45)
[2024-04-26] MEDS ORDERED: NEOSTIGMINE METHYLSULFATE 1 MG/ML 10ML VIAL ONE (15:57)
[2024-04-26] MEDS ORDERED: GLYCOPYRROLATE 0.2 MG/ML VIAL ONE ×2 (15:57)
[2024-04-26] MEDS: BUPIVACAINE/EPINEPHRINE 0.25% 1:200,000 30 ML VIAL ONE (16:15)
--- NOTE | 2024-04-26 16:25 | Post Operative Brief Note ---
PG Immediate Post Op with CF Date of Surgery April 26, 2024 Pre & Post Diagnosis Operation Date: 04/26/24 10:20 Pre-Op Diagnosis: Acute Cholecystitis Post-Op Diagnosis: Acute Cholecystitis I identified the patient and participated in the time-out.: Yes Procedure Operation Date: 04/26/24 10:20 Actual Procedures p Laparoscopic Cholecystectomy(Not Applicable) - Morteza Sim DO Surgeon Morteza Sim DO Icu Registered Nurse Jazmin Cardoza PA-C Estimated Blood Loss 100 Findings See Below Acutely inflamed thickened gallbladder with dense omental adhesions Specimens Specimen Description: A. Gallbladder Anesthesia Type General Complications none Disposition Disposition: Recovery Room
--- NOTE | 2024-04-26 16:31 | Operative Report ---
PG Post Operative Report Pre & Post Diagnosis Operation Date: 04/26/24 10:20 Pre-Op Diagnosis: Acute Cholecystitis Post-Op Diagnosis: Acute Cholecystitis I identified the patient and participated in the time-out.: Yes Procedure Operation Date: 04/26/24 10:20 Actual Procedures p Laparoscopic Cholecystectomy(Not Applicable) - Morteza Sim DO Surgeon Morteza Sim DO Helper Driver Jazmin Cardoza PA-C Estimated Blood Loss 100 Findings See Below Acutely inflamed thickened gallbladder with dense omental adhesions Fluids see anesthesia record Specimens Gallbladder to pathology Drains None Anesthesia Type General Complications none Disposition Disposition: Recovery Room Indications 48 yo female with acute cholecystitis Description of Procedure The patient was brought to the operating room and placed in the supine position with both arms extended. At this time she underwent general endotracheal anesthesia without any problems. She was given appropriate pre-operative antibiotics. Her abdomen prepped and draped in the usual sterile fashion. A timeout was called, the procedure was verified as Laparoscopic cholecystectomy, possible open, possible intra-operative cholangiogram. Surgical, nursing and anesthesia teams agreed and the procedure was begun. After injection of 0.25% Marcaine with epinephrine, a supraumbilical vertical incision was made and carried down to the fascia using S-retractors. The abdominal wall was then elevated with towel clamps and abdomen entered using the Veress needle confirming position using the saline drop test. Pneumoperitoneum was established. 5mm trocar was placed. Laparoscope was introduced. No injury fro m entry into the abdomen was visualized after inspection of the abdomen. Three further ports were placed under direct visualization. One 11mm in the subxiphoid region and two 5mm in the RUQ. At this time the abdomen was inspected and the gallbladder identified. The gallbladder was needle decompressed in order to better manipulate it. There were dense omental adhesions and sharp dissection. Thing was very thickened and edematous consistent with acute cholecystitis. The gallbladder fundus was grasped and retracted cephalad. The gallbladder infundibulum was then grasped and retracted laterally. The cystic duct and cystic artery were then identified and skeletonized. The critical view of safety was obtained. They were both then clipped twice proximally and once distally and then divided using scissors. The gallbladder was then taken off of the liver bed using electrocautery and placed in an endocatch bag and removed from the subxiphoid port. The liver bed was then inspected and no bile leak or bleeding was evident. The subxiphoid port was then closed using 0-Vicryl using the suture passer. The trocars were then removed under direct visualization and no bleeding was present. Abdomen was desufflated. The skin was then closed using 4-0 Monocryl in a subcuticular fashion. Surgical glue was applied. Needle and sponge counts were correct x 2. At this time the patient was awoken from anesthesia and extubated having remained stable throughout the entire case. The patient was then transported to PACU in stable condition. The physician melter assistant was present and scrubbed for the entire case. She was essential in positioning, prepping and draping the patient, retraction and exposure, driving the laparoscope, closure of the incisions and placement of the dressings. I attest to the content of the Intraoperative Record and any orders documented therein. Any exceptions are noted below.
[2024-04-26] MEDS: fentaNYL citrate PF 100 MCG/2 ML VIAL IV PRN (16:38)
[2024-04-26] MEDS: HYDROmorphone INJ 0.5 MG/0.5 ML SYR IV STA (17:10)
--- NOTE | 2024-04-26 17:21 | Anesthesiology Progress Note ---
Date of Service April 26, 2024 Anesthesia Post Procedure Vital Signs Vital Signs: Temp Pulse Pulse Pulse Resp BP BP 04/26/24 17:10 106 H 15 143/87 H 04/26/24 17:00 100 H 13 151/76 H 04/26/24 16:50 104 H 14 156/91 H 04/26/24 16:40 103 H 20 148/89 H 04/26/24 16:32 36.5 C 101 H 22 139/86 04/26/24 13:07 36.7 C 94 H 20 161/93 H 04/26/24 12:43 36.7 C 94 H 20 161/93 H 04/26/24 12:00 92 H 17 152/93 H 04/26/24 11:30 90 19 131/77 04/26/24 11:15 105 H 16 144/87 H 04/26/24 11:14 97 H 18 144/87 H 04/26/24 09:02 98 H 04/26/24 08:36 36.2 C L 116 H 20 136/72 Pulse Ox O2 Del Method O2 Flow Rate 04/26/24 17:10 99 Nasal Cannula 2 04/26/24 17:00 98 Nasal Cannula 2 04/26/24 16:50 100 Oxymask 4 04/26/24 16:40 100 Oxymask 11 04/26/24 16:32 99 Oxymask 11 04/26/24 13:07 98 Room Air 04/26/24 12:43 98 Room Air 04/26/24 12:00 96 04/26/24 11:30 97 04/26/24 11:15 95 04/26/24 11:14 97 Room Air 04/26/24 09:02 04/26/24 08:36 98 Room Air Pain Intensity Right Abdomen: Pain Intensity: 6 Abdomen: Pain Intensity: 6 Transfer of Care Handoff Completed per policy Notes Mental Status: alert / awake / arousable Patient Amnestic to Procedure: Yes Nausea / Vomiting: adequately controlled Pain: adequately controlled Airway Patency, RR, SpO2: stable & adequate BP & HR: stable & adequate Hydration State: stable & adequate Anesthetic Complications: no major complications apparent and Pt Satisfied with anesthetic care
[2024-04-26] MEDS: ACETAMINOPHEN 1,000 MG/100 ML VIAL IV STA (17:35)
[2024-04-26] MEDS: ACETAMINOPHEN 1000 MG/100 ML IV IV ONE (17:37)
[2024-04-26] MEDS ORDERED: LORazepam 0.5 MG TAB PO PRN (18:24)
[2024-04-26] MEDS ORDERED: AMPICILLIN SOD/SULBACTAM SOD 3 GM VIAL IV SCH (18:24)
[2024-04-26] MEDS ORDERED: HYDROmorphone INJ 1 MG/ML SYRINGE IV PRN (18:24)
[2024-04-26] MEDS: oxyCODONE HCL IR 5 MG TAB (IMMEDIATE RELEASE) PO PRN (19:31)
[2024-04-26] MEDS: AMPICILLIN/SULBACTAM SOD 3,000 MG in SODIUM CHLOR 0.9% MINI-B 100 ML IV SCH (19:32)
[2024-04-26] MEDS: HYDROmorphone INJ 0.5 MG/0.5 ML SYR IV PRN (22:17)
[2024-04-27] MEDS: oxyCODONE HCL IR 5 MG TAB (IMMEDIATE RELEASE) PO PRN (00:25)
[2024-04-27] MEDS: ACETAMINOPHEN 1,000 MG/100 ML VIAL IV SCH (01:43)
[2024-04-27] MEDS ORDERED: cefOXitin SOD 2,000 MG VIAL IV SCH (06:00)
--- NOTE | 2024-04-27 06:14 | Electrocardiogram Report ---
Test Reason : Blood Pressure : / mmHG Vent. Rate : 098 BPM Atrial Rate : 098 BPM P-R Int : 140 ms QRS Dur : 082 ms QT Int : 358 ms P-R-T Axes : 000 101 -11 degrees QTc Int : 457 ms Normal sinus rhythm Possible Lateral infarct , age undetermined Nonspecific T wave abnormality Abnormal ECG No previous ECGs available Confirmed by Carl Garrido ([id number]) on 04/27/2024 6:14:28 AM Referred By: REFERRED SELF Confirmed By:Carl Garrido
--- NOTE | 2024-04-27 07:57 | Surgery Progress Note ---
Date of Service April 27, 2024 Assessment & Plan (1) Acute cholecystitis: Plan: POD#1 lap stephanie labs this AM are pending. vitals are stable pain overall managed with prn pain meds tolerating clears, will adv to regular food incisions c/d/i encourage ambulation will check up on blood work and if okay and diet tolerated, pain remains controlled she may dispo to home d/c instructions reviewed, f/u in the office with Dr. mar within 2 weeks Admission and Anticipated Discharge Date Admission Date: April 26, 2024 Subjective Patient is feeling fairly well. Reports some muscle spasms of upper abdomen, R lateral to epigastric incision that feels improved after some pressure and tylenol. Otherwise pain is mostly controlled with prn pain meds. Tolerating clears, no n/v and is hungry for more. Had some issues with voiding yesterday, but now this AM is voiding without issues. Physical Exam Physical Exam: awake/alert, no distress Respiratory: normal respiratory effort Gastrointestinal (Abdomen): Inspection/Auscultation: + abdominal surgical incision (c/d/i, some dry blood shadowing to epigastric incision); abdomen not distended Percussion/Palpation: + abdomen tender (expected srinivas incisional discomfort to palpation ) and abdomen soft Results & Data Vital Signs (Past 12 Hours) Vital Signs Temp Pulse Resp BP Pulse Ox O2 Del Method 04/27/24 07:23 98.2 F 98 H 16 142/85 H 97 Room Air 04/27/24 03:05 98.4 F 78 16 150/80 H 96 Room Air 04/26/24 23:11 98.4 F 108 H 16 134/75 94 Room Air 04/26/24 21:20 97.9 F 89 18 156/84 H 97 Room Air 04/26/24 20:20 98.2 F 99 H 18 148/93 H 95 Room Air PG Care Time/CCT Total # of Minutes Spent Total Time Spent with Patient: Total time spent is greater than 50% in coordination of care (as documented) at patient's floor/unit and/or counseling patient: Coding Level of Care Code 57525 Post Operative Follow-Up Diagnoses Acute cholecystitis K81.0
[2024-04-27 08:18] LABS: Basophils # (auto) 0.02 K/uL (0.00-0.20); Basophils % (auto) 0.2 %; Eosinophils # (auto) 0.03 K/uL (0.00-0.50); Eosinophils % (auto) 0.4 %; Hematocrit (blood only) 35.6 % (37.0-47.0); Hemoglobin 11.9 g/dl (12.0-16.0); Immature Granulocytes # (auto) 0.06 K/uL (0.01-0.20); Immature Granulocytes % (auto) 0.7 %; Lymphocytes # (auto) 1.48 K/uL (1.20-3.40); Lymphocytes % (auto) 17.8 %; Mean Corpuscular Hemoglobin 27.6 pg (25.0-34.0); Mean Corpuscular Hgb Conc 33.4 g/dL (32.0-36.0); Mean Corpuscular Volume 82.6 fL (80.0-100.0); Mean Platelet Volume 8.7 fL (9.4-12.4); Monocytes # (auto) 0.91 K/uL (0.11-0.59); Monocytes % (auto) 10.9 %; Neutrophils # (auto) 5.82 K/uL (1.40-6.50); Platelet Count 401 K/uL (130-400); RDW Coefficient of Variation 12.9 % (11.5-14.5); RDW Standard Deviation 39.2 fL (36.4-46.3); Red Blood Count 4.31 M/uL (4.20-5.40); White Blood Count 8.32 K/ul (4.8-10.8)
[2024-04-27 08:40] LABS: Albumin Globulin Ratio 1.2 (0.9-2); Albumin Level 3.6 gm/dl (3.4-5.0); BUN Creatinine Ratio 4.4 (10-20); Bilirubin,Total 0.3 mg/dl (0.2-1.0); Calcium 8.8 mg/dl (8.6-10.3); Creatinine Clr Calc Pharmacy 198.5 ml/min; Est GFR (African American) 137.3 ml/min; Est GFR (Non-African American) 118.5 ml/min; Potassium 3.2 mmol/L (3.5-5.1); Total Protein 6.6 gm/dl (6.0-8.3)
[2024-04-27] MEDS: ESCITALOPRAM OXALATE 10 MG TAB PO SCH (08:58)
[2024-04-27] MEDS: POTASSIUM CHLORIDE CRTAB 20 MEQ TABCR PO STA (08:58)
[2024-04-27] MEDS: ACETAMINOPHEN 325 MG TAB PO PRN (08:58)
[2024-04-27] MEDS: DOCUSATE SODIUM 100 MG CAP PO ONE (11:07)
[2024-04-27] MEDS: POTASSIUM CHLORIDE 20 MEQ/15 ML UDC PO STA (11:07)
--- NOTE | 2024-04-27 15:08 | Discharge Summary ---
Date of Service April 27, 2024 Admission HPI Per Admitting Provider This is a 48 yo female who presented to the ER today with sharp RUQ abdominal pain with radiation to the back since 2AM. She states that for the past week or so she has had similar symptoms but they worsened at 2AM. No aggravating or relieving factors. She has had nausea and emesis with this. Denies any tea- colored urine, acholic stools, scleral icterus. She does have a fairly extensive surgical history that involves a robotic LAR and ileocecectomy and hysterectomy for endometriosis. She had diverting ileostomy that has since been reversed. She then had an incisional hernia repair with mesh. This was all done at [facility]. Principal Diagnosis acute cholecystitis Discharge Exam Constitutional cooperative and comfortable; no acute distress Respiratory normal respiratory effort and able to speak in complete sentences; no respiratory distress Gastrointestinal (Abdomen) Inspection/Auscultation: + abdominal surgical incision; abdomen not distended Percussion/Palpation: + abdomen tender and abdomen soft Musculoskeletal no cyanosis or clubbing, extremities motor strength 5/5 Psychiatric A+Ox3, euthymic affect Discharge Data Allergies Allergy/AdvReac Type Severity Reaction Status Date / Time fesoterodine [From Toviaz] Allergy Mild BLADDER Unverified 04/26/24 11:05 PAIN omeprazole Allergy Mild Gastrointestinal Unverified 04/26/24 11:05 Upset tioconazole Allergy Mild PAIN Unverified 04/26/24 11:05 [From Monistat 1 (tioconazole)] Monistat Soothing Care GEL AdvReac Unknown Pain Uncoded 04/26/24 11:05 Consultations 04/26/24 10:51 ED Decision to Admit Stat Procedures Performed Operation Date: 04/26/24 10:20 Actual Procedures p Laparoscopic Cholecystectomy(Not Applicable) - Morteza Sim, Ordered Studies 04/26/24 09:00 US gallbladder Stat Hospital Course (1) Acute cholecystitis: This is a 48 yo female who presented to the [facility] ED on 04/26/24 with RUQ abdominal pain. Workup in the ED showed a WBC of 8 and a RUQ U/S concerning for acute cholecystitis . The patient was tender to palpation in the RUQ. Patient made NPO with IVF and booked for the OR. On 04/26/24 the patient went to the OR with Dr. Sim for a laparoscopic Cholecystectomy. The patient tolerated the procedure well, see operative report for full details. Post operatively the patient's diet was advanced, pain managed on prn meds, and incisions cl jose armando/dry/intact. On POD#1 04/27/24 the patient was deemed stable for discharge to home.She was given post operative discharge instructions, return precautions and follow up recommendations. Total Time Total Time Spent Total Time Spent (In Minutes): 10 Discharge Plan Discharge Items Patient Disposition: Home - Self-Care Reason For Visit: CHOLECYSTITIS Discharge Diagnosis: laparoscopic cholecystectomy Activity: Per Instructions section Lifting: No more than 10 pounds Bathing Comment: may shower; no soaking in tubs/pools x 2 weeks Exercise/Sports: Wait until after follow-up appointment Driving/Machine Use: no driving while taking narcotics for pain Non-emergency contact: Surgeon Call non-emergency contact if: you have any medication questions, your symptoms worsen, you have a fever, your temperature is above 101.5, your wound has increased redness, your wound has increased drainage and your wound pain has increased Follow-up/Referrals: Morteza Sim DO [Physician] - 05/06/24 11:30 am (Please call to schedule follow up in clinic within 2 weeks ) Demarcus Ingram MD [Primary Care Provider] - Diet: Regular Addtl Attending Provider Instructions: You may remove your outer surgical dressings on 04/28. You will have small white bandages on underneath that are over your incisions. You may shower with these on. They will tend to fall off on their own within 7-10 days. You may purchase Tylenol and/or Ibuprofen over the counter if needed for additional pain control over the next few days. Take per manufacturers instructions Pending Studies at Discharge: Yes Studies:: surgical pathology Stand-Alone Forms: [employer], Smoking Cessation Medications and DC Order Prescriptions: New oxycodone 5 mg tablet 5 - 10 mg PO .[id number] PRN (Reason: pain, for initial therapy, max 6 tabs per day) Qty: 15 0RF Continued Nexplanon 68 mg implant 1 implant subdermal ONCE Rx Instructions: Endometriosis ondansetron 8 mg tablet,disintegrating 8 mg PO Q8H PRN (Reason: Nausea And Vomiting) lorazepam 0.5 mg Tablet 0.5 mg PO DAILY PRN (Reason: Anxiety) escitalopram oxalate 10 mg tablet 15 mg PO QAM rizatriptan 10 mg tablet,disintegrating 10 mg PO ONCE PRN (Reason: Migraine Headache) Rx Instructions: may repeat dose in 2 hours if needed Discontinued oxycodone 5 mg tablet 5 mg PO Q8H PRN (Reason: pain) Qty: 10 0RF Discharge Orders: Discharge Order (Routine); Ordered 04/27/24 Ordered By: Robert Holcomb Admission Data Admit Date/Time: 04/26/24 16:31 Attending Provider: Morteza Sim Admit Provider: Morteza Sim Primary Care Provider: Demarcus Ingram Other Providers: Morteza Sim Other Interventions: Discharge Summary Assessment (RN) Last Done: 04/27/24 12:24 Coding Level of Care Code 82712 IN/OBS DISCH 30 MIN/LESS Diagnoses Acute cholecystitis K81.0
== END 2024-04-27 14:20 | disposition home or self-care (01) | DRG 419 ==
LOC: ED 08:29 → OR 12:25 → 3N 12:25